=== PATIENT | male | born 1965 | race Caucasian/White ===

== ENCOUNTER → 2023-06-27 17:20 | Outpatient (REF) | payer BC, SELFPAY | LOC: RAD 17:20 | PROVIDERS: ATTENDING PHYSICIAN Chiropractor; FAMILY PHYSICIAN Family Medicine | DX: M54.2 Cervicalgia (principal) | CPT/HCPCS: 72040 ==

== ENCOUNTER 2024-11-05 10:01 | Emergency (ER) | payer BC, SELFPAY ==
[2024-11-05 10:02] VITALS: BP 135/106
--- NOTE | 2024-11-05 10:44 | ED.GENMED ---
History of Present Illness
General
Chief Complaint: Depression
Time Seen by Provider: 11/05/24 10:08
History of Present Illness
History of Present Illness:
59-year-old male with history of diabetes, hyperlipidemia, hypertension, anxiety and depression presenting for increased depression. Patient reports that he has struggled with anxiety and depression for years. He notes symptoms have been worsening
in the past few months, essentially since June. He has been working with his primary care doctor, trying different medications. He is currently on Seroquel and Wellbutrin. He also takes lorazepam for anxiety. They have tried increasing his
medications, however possible working. He notes that this morning he was particularly having a tough day. Explains that he does not feel racheal in his days. He denies specific suicidal thoughts or plan, however explains that he understands now why
some people do commit suicide. He denies physical complaint such as chest pain or difficulty breathing, does note some generalized muscle soreness. Denies additional acute medical complaints.
Past History
Past History
ED Past Medical History: Other (Patient had recently been treated for Lyme disease in the spring, and anxiety)
ED Past Surgical History: None
Social History
Tobacco: Non-smoker
Alcohol: Occasional
Drug: None
Personal:
Living: with family
Employment: Employed
Phy Exam
Physical Exam
Physical Exam:
General: Well-appearing, no clinical signs of dehydration, nontoxic and in no acute distress
HEENT: protecting airway
Neck: appears supple
CV: Normal heart rate, regular rhythm, no evidence of cyanosis
Resp: No accessory muscle use, no increased work of breathing, lungs clear to auscultation bilaterally
Abd: Soft and non-distended, no tenderness to palpation
Extremities: No deformities, no swelling
Neuro: alert, no focal neurologic deficit
: deferred
Rectal: deferred
Psych: Depressed affect, tearful
Skin: Intact
Course
Orders/Labs/Results
Orders:
Orders
11/05/24 10:11
Crisis Consult Urgent
Reason for Consult: SI
11/05/24 10:46
Complete Blood Count/With Diff Urgent
Comprehensive Metabolic Panel Urgent
11/05/24 11:37
Urinalysis Reflex To Culture Urgent
Date Specimen was Collected: 11/05/24
Time Specimen was Collected: 11:35
Urine Drug Abuse Screen Urgent
Date Specimen was Collected: 11/05/24
Time Specimen was Collected: 11:35
Urine Microscopic Reflex Cult Urgent
Abnormal Lab Results
11/05/24 11/05/24
10:46 11:37
MPV 10.9 H fL
(7.4-10.4)
Absolute Lymphs (auto) 0.8 L 10^3/uL
(1.2-3.4)
Neutrophils % 78.2 H %
(42.2-75.2)
Lymphocytes % 11.6 L %
(20.5-51.1)
Glucose 158 H mg/dl
(70-99)
Urine Bilirubin 1+ A
(Negative)
Urine Urobilinogen 2+ A
(Neg - 1+)
Urine Albumin (Reflex) 1+ A
(Neg - Trace)
11/05/24 10:46
11/05/24 10:46
Vital Signs
Initial and Last Documented VS:
Initial Vital Signs
Temp Pulse Resp BP Pulse Ox
97.9 F 105 16 135/106 99
11/05/24 10:02 11/05/24 10:02 11/05/24 10:02 11/05/24 10:02 11/05/24 10:02
Last Documented Vital Signs
Temp Pulse Resp BP Pulse Ox
97.9 F 87 16 107/77 98
11/05/24 10:02 11/05/24 11:00 11/05/24 11:00 11/05/24 11:00 11/05/24 11:00
MDM/Problems Addressed
MDM/Problems Addressed:
59-year-old male with history of anxiety and depression presenting for increased hopelessness and depressive thoughts. Vital signs on arrival are significant for mild hypertension.
On exam, patient is resting comfortably, no acute distress. Patient is nontoxic. He does have a very depressed affect, tearful. Denies active suicidal thoughts or plan, however does express a lot of hopelessness. is at bedside, notes that
she has been staying with patient as much as possible because she does not want him to be alone. Will consult with the crisis team.
11:50 - Per crisis, recommending intensive outpatient therapy and evaluation by psychiatry outpatient. Patient and in agreement with this plan. Patient is set up for treatment on Tuesday, Tuesday, at [facility]. At this time do
not presently feel that patient is a threat to himself or others. Plan for discharge.
*Pulse Oximetry
SaO2: 99
Oxygen Mode of Delivery: Room air
Patient hypoxic: no
*Critical Care Note
Total Time (30-74mins, 75-104mins- exclusive of procedures): Not Applicable
ED Attending Note
-
Portions of this chart may have been created with voice recognition software.� Occasional wrong word or��sound alike� substitutions may have occurred due to the inherent limitations of voice recognition software.
Discharge Plan
Departure
Patient with high blood pressure during this ER visit?: No
Condition: Good
Discharge Problem:
Depression
Instructions: Depression, Adult (DC)
Prescriptions:
No Action
No Current Medications
ketorolac 10 MG tablet
10 mg PO Q6HPRN PRN (Reason: pain) Qty: 20 0RF
Referrals:
Ruth Acevedo DO [Family Provider, Family Practice]
Activity Restrictions/Additional Instructions:
You were seen in the emergency department for increased depression and anxiety.
You were seen by our crisis team, recommended for intensive outpatient treatment, as well as outpatient psychiatry assessment. Please follow-up with the resources provided.
Please follow-up closely with your primary care physician.
Return to the emergency department for any worsening of your symptoms and particularly any thoughts of wanting to hurt yourself or other, or any development of chest pain, difficulty breathing, abdominal pain with persistent vomiting and inability
to tolerate food or liquid by mouth (concern for dehydration), weakness, headache or confusion, fever greater than 100.4, or any additional symptoms that are concerning to you.
Thank you for choosing [facility].
Interventions
Interventions:
*Risk Screen - Suicide Last Done: 11/05/24 10:05
*General Assessment Last Done: 11/05/24 10:40
*Neglect/Abuse Screening Last Done: 11/05/24 10:05
*ED- Fall Risk Assessment Last Done: 11/05/24 10:40
*ED COVID-19 Vaccine History Last Done: 11/05/24 10:40
ED-Psychological Assessment Last Done: 11/05/24 10:40
Discharge Date and Time
Print Language: HUNGARIAN
[2024-11-05 10:53] LABS: Hematocrit 44.7 % (39.0-52.0); Hemoglobin 15.3 g/dL (13.0-18.0); Mean Corp Hgb Conc. 34.2 g/dL (33.0-37.0); Mean Corpuscular Volume 87.1 fL (80.0-94.0); Nucleated Red Blood Cells % 0 % (-); Platelet Count 163 10^3/uL (130-400); Red Cell Dist. Width 11.9 % (11.5-14.5)
[2024-11-05 11:00] VITALS: BP 107/77
[2024-11-05 11:16] LABS: ALT (SGPT) 24 U/L (0-50); AST (SGOT) 22 U/L (17-59); Albumin 4.6 g/dl (3.5-5.0); Alkaline Phosphatase 38 U/L (38-126); Blood Urea Nitrogen 19 mg/dl (9-20); Calcium 9.7 mg/dl (8.4-10.2); Carbon Dioxide 28 mmol/L (22-30); Chloride 103 mmol/L (98-107); Estimated Creatinine Clearance 106 ml/min; Glucose 158 mg/dl (70-99); Potassium 4.4 mmol/L (3.5-5.1); Sodium 140 mmol/L (135-145); Total Protein 6.4 g/dl (6.3-8.2); eGFR > 60.00
[2024-11-05 11:45] LABS: Urine Character Clear (Clear)
[2024-11-05 12:03] LABS: Urine Red Blood Cell 0-2 /HPF (0-2); Urine Squamous Cell 0-2 /LPF (Few); Urine White Cell 0-2 /HPF (0-5)
--- NOTE | 2024-11-05 12:21 | EDRN ---
Reviewed discharge instructions with patient. Verbalized understanding. Ambulated with steady gait to the lobby.
[2024-11-05 12:22] VITALS: BP 103/73
== END 2024-11-05 12:23 | disposition home or self-care (01) ==
LOC: EMR 10:01
PROVIDERS: EMERGENCY PHYSICIAN Student in an Organized Health Care Education/Training Program; FAMILY PHYSICIAN Family Medicine
DX: F32.A Depression, unspecified (principal); F41.9 Anxiety disorder, unspecified; E11.9 Type 2 diabetes mellitus without complications; E78.5 Hyperlipidemia, unspecified; I10 Essential (primary) hypertension; Z79.899 Other long term (current) drug therapy
CPT/HCPCS: 99284; 80053; 80306; 80307; 81003; 81015; 85025

== ENCOUNTER 2024-12-27 06:11 | Day surgery (SDC) | payer BC, SELFPAY ==
[2024-12-12 14:03] VITALS: BMI 18.1
[2024-12-27] VITALS (12 sets, daily range): BP systolic 102–111; BP diastolic 69–79; BMI 18.1
--- NOTE | 2024-12-27 09:53 | W.SUR.PREOP ---
Pre-Operative Surgical Note
-
I have examined this patient prior to the performance of the scheduled procedure.
The patient's condition is unchanged from the time of the current History and
Physical and the patient is able to undergo the scheduled procedure.
--- NOTE | 2024-12-27 09:53 | HP.FOC2 ---
Focused History & Physical
Chief Complaint
HPI:
Chief Complaint: Right inguinal hernia
HPI / Indication for Planned Procedure: This is a 59-year-old gentleman who presents with a symptomatic right inguinal hernia. Will plan for a robotic right inguinal hernia repair with mesh.
Relevant Past Medical History: Negative
Relevant Social History: Negative
Relevant Family History: Negative
Relevant Past Surgical History: Negative
Review of Systems
Review of Pertinent Systems: All Systems Negative
Medication
See Medication form for detailed medications: Yes
Medication List (including Herbals & OTC):
bupropion HCl 300 mg 24 hr tablet, extended release 300 mg PO DAILY 12/20/24
buspirone 15 mg tablet 15 mg PO BID 12/20/24
lisinopril 5 mg tablet 5 mg PO DAILY 12/20/24
lorazepam 0.5 mg tablet 0.5 mg PO HS 12/20/24
lorazepam 0.5 mg tablet 1 mg PO DAILY 12/20/24
metformin 1,000 mg tablet 1,000 mg PO BID 12/20/24
quetiapine 50 mg tablet,extended release 24 hr 50 mg PO HS 12/20/24
rosuvastatin 5 mg tablet (Crestor) 5 mg PO DAILY 12/20/24
sertraline 100 mg tablet 100 mg PO DAILY 12/20/24
Medications Reviewed: Yes
Allergies and Reactions
Patient has Allergies: No
Noted Allergies and Reactions:
Allergy/AdvReac Type Severity Reaction Status Date / Time
No Known Allergies Allergy Unverified 12/27/24 09:39
Pertinent Physical Exam
All Other Systems: Negative
Head/Neck: Normal
Diagnosis / Assessment
This is a 59-year-old gentleman who presents with a symptomatic right inguinal hernia.
Plan / Procedure
Will plan for a robotic right inguinal hernia repair with mesh.
Anesthesia/Sedation to be done by Anesthesia Provider: Yes
[2024-12-27 09:55] LABS: Glucose - Point of Care 141 mg/dl (70-99)
[2024-12-27] MEDS: TYLENOL 1000 MG PO (09:55)
[2024-12-27] MEDS: NORMOSOL-R/PLASMALYTE-A 1000 IV (09:55)
--- NOTE | 2024-12-27 11:44 | W.IMMPOSTOP ---
Surgical Immed Post Op Note
-
Primary Surgeon: Flako Christine MD
Assisting Surgeon: None
Pre-op Diagnosis: Right inguinal hernia
Post-op Diagnosis: Same
Procedure Performed: Robotic right inguinal hernia repair with mesh
Anesthesia Type: General
Specimen / Cultures: None
Estimated Blood Loss: 3 cc
Complications: None
Operative Findings: Right direct and indirect inguinal hernia:, No cord lipoma no femoral component. After achieving a critical view of the MPO the space was reinforced with a large right Bard mid weight 3D max uncoated polypropylene mesh.
--- NOTE | 2024-12-27 11:46 | OR.RPT ---
Operative Report
Operative Report
Patient Name: Evan Pitt
: 1965
Date of Operation: 12/27/2024
Preoperative Diagnosis: Reducible Inguinal hernia, right
Postoperative Diagnosis: Same
Procedure(s):
1. Robotic Inguinal Hernia Repair with mesh, right (RADHA approach)
Surgeon(s):
Dr. Christine
Ingot Supervisor(s):
CHRISTINA Whitten
Anesthesia: General
Estimated Blood Loss: 3 cc
Urine Output: None
Drains/Lines/Implants: Large 3D Max Bard mid weight uncoated polypropylene mesh
Specimens: None
Indication for surgery: The patient has a history of groin pain and noted on exam to have a right inguinal Hernia(s). Following review of therapeutic options they have elected to undergo a minimally invasive repair.
Operative Findings: Right direct and indirect inguinal hernia:, No cord lipoma no femoral component. After achieving a critical view of the MPO the space was reinforced with a large right Bard mid weight 3D max uncoated polypropylene mesh.
Details of the operation:
The patient was brought to the Operating Room and placed in the supine position with the arms tucked. IV antibiotics were infused and Venodyne stockings placed. Following uneventful induction of general endotracheal anesthesia, an orogastric tube
was placed. The abdomen was prepped and draped in the usual sterile fashion. The abdomen was entered using a Veress technique which required 1 pass(es), pneumoperitoneum to 15 mmHg was obtained without difficulty. An 8mm trochar was passed through
the abdominal wall roughly 20 cm cephalad to the inguinal canal. We then confirmed that no inadvertent injury was made while passing the trocar or Veress needle. We then placed two additional 8 mm ports in the left upper and right upper quadrants.
We then docked the robot with a Prograsper in the left hand port and monopolar scissors in the right. No hernia defect was noted on the left, a pantaloon hernia defect was noted on the right. We then began by creating a flap at the level of the
ASIS laterally working our way medially to the medial umbilical fold. Staying onto the peritoneum we were able to circumferentially dissect around the hernia sac and and peel it off of the underlying spermatic cord and testicular vessels, taking
care to preserve them. Medially we identified the midline pubis as well as Nicholas's ligament and ensured to dissect 2 cm below the pubic rim over the bladder. After exposure of the entire myopectineal orifice we identified and reduced: A small
indirect inguinal hernia, a small direct inguinal hernia, no femoral component and no cord lipoma.
We then fixated a large 3D max mesh with a 2-0 Vicryl stitch at coopers medially and superior laterally. The flap was then closed with a running 2-0 barbed monocryl suture ensuring that the tail was cut flush with the medial fat pad so that no
barbs were exposed. During the closure of the flap an metal suction cannula was inserted and 20 cc of quarter percent Marcaine was instilled. The area in the flap cavity was then evacuated of air confirming that the mesh was flush and there were
no folds. All needles and instruments were then removed and the robot was undocked. The abdomen was then desufflated, and pneumoperitoneum evacuated. Care was taken particularly to evaluate the left upper quadrant port site as there was some
bleeding from the rectus muscle at the time of port placement but this had stopped by the end of the case. All skin sites were then closed with 4-0 Monocryl followed by Dermabond. Counts were correct and overall, the patient tolerated the procedure
well and was taken to the Recovery Room postoperatively in stable condition.
Juma was the attending physician and performed the procedure with assistance of the PA above. The assistance of CHRISTINA Whitten was required due to the complexity of the procedure. During the procedure Kristie assisted with port placement, instrument
and needle exchanges, and closure of the wound. Juma was present for all portions of the case, excluding skin closure.
Flako Christine MD
[2024-12-27 12:14] LABS: Glucose - Point of Care 160 mg/dl (70-99)
== END 2024-12-27 13:53 | disposition home or self-care (01) ==
LOC: SDS 06:11
PROVIDERS: ATTENDING PHYSICIAN Surgery; FAMILY PHYSICIAN Family Medicine
DX: K40.90 Unilateral inguinal hernia, without obstruction or gangrene, not specified as recurrent (principal)
CPT/HCPCS: 49650; 36415; 82962; 93005; C1781